=== PATIENT | female | born 1990 | race American Indian/Alaskan Native ===

== ENCOUNTER 2021-02-28 13:37 | Emergency (ER) | payer BC ==
[2021-02-28 16:50] LABS: Bacteria,Urine 1+ /HPF (Negative); Bilirubin,Urine NEG (Negative); Blood,Urine NEG (Negative); Color,Urine Yellow (Yellow); Mucus,Urine FEW /HPF; Protein,Urine <15 mg/dL mg/dL (Negative)
[2021-02-28 16:55] LABS: HCG Qualitative,Urine Negative (Negative)
[2021-02-28 17:36] VITALS: BP 122/70
--- NOTE | 2021-02-28 17:38 | Emergency Department Report ---
ED Female HPI - General Chief complaint: Urogenital-Female Stated complaint: PELVIC PAIN Time Seen by Provider: 02/28/21 16:55 Source: patient Mode of arrival: Ambulatory Limitations: No Limitations - History of Present Illness Initial comments: Patient is a 30-year-old female presents emergency room complaints of pelvic pain that began 5 days ago. Patient states that she feels pressure upon urination and states that whenever her bladder is full the pain gets worse. She denies any abnormal vaginal discharge, dysuria, vaginal bleeding, fever, nausea, vomiting, diarrhea, vaginal itching, vaginal burning. She denies any concerns for STDs. She states that she has never had an STD in the past. She states she last saw her [facility] [employer] in September 2020 and reports everything was normal at that time, she denies ever having an abnormal Pap smear. Last menstrual cycle 01/23/2021. Past medical history of asthma. Allergy to penicillin and IV dye. - Related Data Allergies Allergy/AdvReac Type Severity Reaction Status Date / Time Penicillins Allergy Unknown Verified 02/28/21 15:30 IV dye Allergy Unknown Uncoded 02/28/21 15:31 ED Review of Systems ROS: Stated complaint: PELVIC PAIN Other details as noted in HPI Comment: All other systems reviewed and negative ED Past Medical Hx - Past Medical History Previous Medical History?: Yes Hx Asthma: Yes - Surgical History Past Surgical History?: Yes Additional Surgical History: , hernia repair, abdominalplasty ED Physical Exam - General Limitations: No Limitations General appearance: alert, in no apparent distress - Head Head exam: Present: atraumatic, normocephalic - Eye Eye exam: Present: normal appearance - ENT ENT exam: Present: mucous membranes moist - Respiratory Respiratory exam: Present: normal lung sounds bilaterally. Absent: respiratory distress, wheezes, rales, rhonchi, stridor, chest wall tenderness, accessory muscle use, decreased breath sounds, prolonged expiratory - Cardiovascular Cardiovascular Exam: Present: regular rate, normal rhythm, normal heart sounds. Absent: systolic murmur, diastolic murmur, rubs, gallop - GI/Abdominal GI/Abdominal exam: Present: soft, tenderness (mild suprapubic ), normal bowel sounds. Absent: distended, guarding, rebound, rigid - Neurological Exam Neurological exam: Present: alert, oriented X3 - Psychiatric Psychiatric exam: Present: normal affect, normal mood - Skin Skin exam: Present: warm, dry, intact ED Course Vital Signs 02/28/21 15:31 Temperature 98.6 F Pulse Rate 75 Respiratory 18 Rate Blood Pressure 122/70 O2 Sat by Pulse 99 Oximetry ED Medical Decision Making - Medical Decision Making Patient is a 30-year-old female presents emergency room complaints of pelvic pain that began 5 days ago. Patient states that she feels pressure upon urination and states that whenever her bladder is full the pain gets worse. She denies any abnormal vaginal discharge, dysuria, vaginal bleeding, fever, nausea, vomiting, diarrhea, vaginal itching, vaginal burning. She denies any concerns for STDs. She states that she has never had an STD in the past. She states she last saw her [employer] in September 2020 and reports everything was normal at that time, she denies ever having an abnormal Pap smear. Last menstrual cycle 01/23/2021. Past medical history of asthma. Allergy to penicillin and IV dye. vitals are normal. On exam patient has mild suprapubic tenderness to palpation, no guarding, no rebound, no rigidity, normal bowel sounds, no peritoneal signs. UA is WNL. Urine preg is negative. Advised patient that we would order a pelvic ultrasound and the patient was agreeable with plan Ultrasound attempted to call patient multiple times with no answer it appears patient has eloped from the emergency department Critical care attestation.: If time is entered above; I have spent that time in minutes in the direct care of this critically ill patient, excluding procedure time. ED Disposition Clinical Impression: Pelvic pain Disposition: Z-07 ELOPED Is pt being admited?: No Does the pt Need Aspirin: No Condition: Undetermined
== END 2021-02-28 22:30 | disposition left against medical advice (07) ==
LOC: ED 13:37
DX: R10.2 Pelvic and perineal pain (principal); J45.909 Unspecified asthma, uncomplicated; Z88.0 Allergy status to penicillin; Z98.890 Other specified postprocedural states; Z91.041 Radiographic dye allergy status
CPT/HCPCS: 81001; 81025; 99282

== ENCOUNTER 2022-01-31 14:54 | Emergency (ER) | payer BC ==
--- NOTE | 2022-01-31 15:43 | XRay Report ---
CHEST 2 VIEWS INDICATION / CLINICAL INFORMATION: SOB. COMPARISON: None available. FINDINGS: SUPPORT DEVICES: None. HEART / MEDIASTINUM: No significant abnormality. LUNGS / PLEURA: Calcified RUL granulom. No significant pulmonary or pleural abnormality. No pneumot horax. ADDITIONAL FINDINGS: No significant additional findings. IMPRESSION: 1. No acute findings. Signer Name: Isaias Mueller MD Signed: 01/31/2022 3:39 PM Workstation Name: [id number]
[2022-02-01 01:13] LABS: HCG Qualitative,Urine Negative (Negative)
--- NOTE | 2022-02-01 02:46 | Emergency Department Report ---
- General Chief Complaint: Dyspnea/Respdistress Stated Complaint: SEVERE SOB Time Seen by Provider: 01/31/22 23:40 Source: patient Mode of arrival: Ambulatory Limitations: No Limitations - History of Present Illness Initial Comments: 31-year-old [facility] of shortness of breath off and on with cough which has been worsening over the last 2 to 3 days. Ports no fever, chills, sweats. No hemoptysis hematemesis hematochezia. No nausea vomiting MD Complaint: cough, rhinorrhea, nasal congestion -: Gradual Severity: mild, moderate Quality: dull Consistency: constant Improves With: nothing Context: other (po) Associated Symptoms: rhinorrhea, nasal congestion, cough, shortness of breath. denies: chills, myalgias, nausea, vomiting, dysuria, confusion, right sweats, weight loss, epistaxis, hoarseness - Related Data Previous Rx's Medication Instructions Recorded Last Taken Type Ibuprofen [Motrin 800 MG tab] 800 mg PO Q8HR PRN #20 tablet 08/01/21 Unknown Rx Sulfamethoxazole/Trimethoprim 1 each PO BID 7 Days #14 tablet 08/01/21 Unknown Rx [Bactrim DS TAB] medroxyPROGESTERone ACETATE 10 mg PO QDAY 5 Days #5 tablet 08/01/21 Unknown Rx [Medroxyprogesterone Acetate] Albuterol Mdi (or & Nicu Only) 1 puff IH Q4-6H PRN #1 inha 02/01/22 Unknown Rx [ProAir HFA Inhaler] Allergies Allergy/AdvReac Type Severity Reaction Status Date / Time Penicillins Allergy Unknown Verified 02/28/21 15:30 IV dye Allergy Unknown Uncoded 02/28/21 15:31 ED Review of Systems ROS: Stated complaint: SEVERE SOB Other details as noted in HPI Comment: All other systems reviewed and negative ED Past Medical Hx - Past Medical History Hx Asthma: Yes - Surgical History Additional Surgical History: , hernia repair, abdominalplasty - Medications Home Medications: Home Medications Medication Instructions Recorded Confirmed Last Taken Type Ibuprofen [Motrin 800 MG tab] 800 mg PO Q8HR PRN #20 tablet 08/01/21 Unknown Rx Sulfamethoxazole/Trimethoprim 1 each PO BID 7 Days #14 tablet 08/01/21 Unknown Rx [Bactrim DS TAB] medroxyPROGESTERone ACETATE 10 mg PO QDAY 5 Days #5 tablet 08/01/21 Unknown Rx [Medroxyprogesterone Acetate] Albuterol Mdi (or & Nicu Only) 1 puff IH Q4-6H PRN #1 inha 02/01/22 Unknown Rx [ProAir HFA Inhaler] ED Physical Exam - General Limitations: No Limitations General appearance: alert, in no apparent distress - Head Head exam: Present: atraumatic, normocephalic - Eye Eye exam: Present: normal appearance - ENT ENT exam: Present: mucous membranes moist - Neck Neck exam: Present: normal inspection - Respiratory Respiratory exam: Present: normal lung sounds bilaterally. Absent: respiratory distress - Cardiovascular Cardiovascular Exam: Present: regular rate, normal rhythm. Absent: systolic murmur, diastolic murmur, rubs, gallop - GI/Abdominal GI/Abdominal exam: Present: soft, normal bowel sounds - Extremities Exam Extremities exam: Present: normal inspection - Back Exam Back exam: Present: normal inspection - Neurological Exam Neurological exam: Present: alert, oriented X3 - Psychiatric Psychiatric exam: Present: normal affect, normal mood - Skin Skin exam: Present: warm, dry, intact, normal color. Absent: rash ED Course Vital Signs 01/31/22 15:12 Temperature 98.7 F Pulse Rate 77 Respiratory 16 Rate Blood Pressure 131/73 [Left] O2 Sat by Pulse 98 Oximetry ED Medical Decision Making - Radiology Data Radiology results: report reviewed [facility] [address] [place] [address] XRay Report Signed Patient: BIN CHIN MR#: [id number] : 1990 Acct:[id number] Age/Sex: 31 / F ADM Date: 01/31/22 Loc: ED Attending Dr: Ordering Physician: ED MD ALEXSANDRA Date of Service: 01/31/22 Procedure(s): XR chest routine 2V Accession Number(s): [id number] cc: ED MD ALEXSANDRA Fluoro Time In Minutes: CHEST 2 VIEWS INDICATION / CLINICAL INFORMATION: SOB. COMPARISON: None available. FINDINGS: SUPPORT DEVICES: None. HEART / MEDIASTINUM: No significant abnormality. LUNGS / PLEURA: Calcified RUL granulom. No significant pulmonary or pleural abnormality. No pneumothorax. ADDITIONAL FINDINGS: No significant additional findings. IMPRESSION: 1. No acute findings. Signer Name: Isaias Mueller MD Signed: 01/31/2022 3:39 PM Workstation Name: [id number] Transcribed By: TL Dictated By: Isaias Mueller MD Electronically Authenticated By: Isaias Mueller MD Signed Date/Time: 01/31/221538 DD/ 37 TD/TT: Critical care attestation.: If time is entered above; I have spent that time in minutes in the direct care of this critically ill patient, excluding procedure time. ED Disposition Clinical Impression: SOB (shortness of breath) Disposition: HOME / SELF CARE / HOMELESS Is pt being admited?: No Does the pt Need Aspirin: No Condition: Stable Instructions: Cough, Adult, Shortness of Breath, Adult Prescriptions: Albuterol Mdi (or & Nicu Only) [ProAir HFA Inhaler] 1 puff IH Q4-6H PRN #1 inha PRN Reason: Cough Referrals: [facility] [Provider Group] - 3-5 Days
[2022-02-01 04:13] VITALS: BP 162/81
== END 2022-02-01 04:03 | disposition home or self-care (01) ==
LOC: ED 14:54
DX: R06.02 Shortness of breath (principal)
CPT/HCPCS: 71046; 81025; 99283